=== PATIENT | male | born 1940 | race Caucasian/White ===

== ENCOUNTER → 2021-10-09 | Outpatient (CLI) | payer MEDICARE ==
--- NOTE | 2021-10-09 17:21 | KCIC ---
EXAM: XR LUMBAR SPINE 4+V 10/09/2021 11:28 AM CLINICAL INDICATION: Acute lumbar radiculopathy. Fell 6 days ago and landed on left hip. Pain down e ntire left leg and lower back COMPARISON: None TECHNIQUE: AP, lateral, coned-down lateral, and right left oblique views of the lumbar spine FINDINGS: The bones are diffusely demineralized. There are 5 nonrib-bearing lumbar vertebral bodies. There is a compression fracture of L2 with 55 percent height loss, likely acute. No definite retropu lsion. Additional compression fracture of T11 with 40 percent height loss and no retropulsion, age in determinate. Possible additional subtle compression fracture of L4 with minimal height loss, also age -indeterminate. Mild disc space narrowing throughout the lumbar spine with small anterior osteophytes. There are calc ifications in the abdominal aorta. IMPRESSION: 1. Acute appearing L2 compression fracture with 55 percent height loss. Age indeterminate T11 gianni bettina fracture with 40 percent height loss and possible additional L4 compression fracture with minima l height loss. No obvious retropulsion of the fractures. Further evaluation could be obtained by MRI, which is more sensitive. 2. Mild degenerative disc disease. Electronically signed by: Morelia Babin MD (10/09/2021 5:18 PM) [id number]
== END ==
LOC: KCIC 11:25
PROVIDERS: ATTEND Family Medicine
DX: M51.16 Intervertebral disc disorders with radiculopathy, lumbar region (principal); M48.061 Spinal stenosis, lumbar region without neurogenic claudication; M81.8 Other osteoporosis without current pathological fracture; M48.56XA Collapsed vertebra, not elsewhere classified, lumbar region, initial encounter for fracture; M48.54XA Collapsed vertebra, not elsewhere classified, thoracic region, initial encounter for fracture; I70.0 Atherosclerosis of aorta; M25.78 Osteophyte, vertebrae
CPT/HCPCS: 72110